=== PATIENT | female | born 1990 | race Caucasian/White ===

== ENCOUNTER 2020-11-01 23:04 | Emergency (ER) | payer OTHER, MEDICAID, SELFPAY ==
[2020-11-01 23:12] VITALS: BP 115/71; PULSE 103; RESP 17; TEMP 36.7; O2SAT 100; BMI 26.6
--- NOTE | 2020-11-02 00:14 | ED_ITS ---
HPI - General Adult General Chief complaint: Urogenital-Female Stated complaint: thinks bladder infection Time Seen by Provider: 11/01/20 23:52 Source: patient Mode of arrival: Ambulatory Limitations: no limitations History of Present Illness HPI narrative: Patient is a 30-year-old female here for evaluation of approximately 24 hours of urinary frequency and urgency and burning. She states she feels like that she has a urinary tract infection. No vomiting. No back pain. No fevers. No vaginal bleeding. No change in bowel habits. Has not tried anything for her symptoms prior to arrival Related Data Previous Rx's Medication Instructions Recorded albuterol sulfate [Proventil HFA] 1 puff INH PRN PRN #8.5 gm 09/03/16 epinephrine [EpiPen 2-Randall] 0.3 mg IM PRN PRN #1 ea 02/22/17 phenazopyridine [Pyridium] 100 mg PO TID PRN #6 tab 11/02/20 Allergies Allergy/AdvReac Type Severity Reaction Status Date / Time FAMILIAL ALLERGY TO SULFA Allergy Unknown Uncoded 02/12/18 12:22 Review of Systems Constitutional Constitutional: Denies fever(s) Genitourinary Genitourinary: Reports dysuria, Reports urinary frequency and Reports urinary urgency Genitourinary: Reports urinary frequency, Reports dysuria, Reports urinary urgency and Denies vaginal discharge Musculoskeletal Musculoskeletal: Denies back pain Integumentary/Breasts Skin/Breast: Denies rash Hematologic/Lymphatic Hematologic/Lymphatic: Denies easy bleeding and Denies easy bruising Patient History Medical History Patient denies medical problems Social History Smoking Status: Current every day smoker Smoking Status: Current every day smoker Substance Use Type: heroin and methamphetamine Exam Initial Vital Signs Initial Vital Signs: Vital Signs Temperature 98.0 F 11/01/20 23:12 Pulse Rate 103 H 11/01/20 23:12 Respiratory Rate 17 11/01/20 23:12 Blood Pressure 115/71 11/01/20 23:12 Pulse Oximetry 100 11/01/20 23:12 Const General: cooperative and comfortable Resp Effort & Inspection: normal respiratory effort Cardio Rate: tachycardic Back/Spine/Pelvis Back: No CVA tenderness Skin Lesions: no lesions Rashes: no rashes Neuro General: patient alert, patient awake and patient oriented x3 Cognition: normal cognition Speech: speech normal Extrem General: normal to inspection Psych Appearance: grossly normal and well kempt Course Orders Ordered: Discontinued Medications Phenazopyridine HCl (Phenazopyridine 100 Mg Tablet) 100 mg PO NOW ONE Stop: 11/02/20 00:15 Last Admin: 11/02/20 00:18 Dose: 100 mg Documented by: ODALYS Vital Signs Vital signs: Vital Signs - 8 hr 11/01/20 23:12 11/02/20 00:21 Temperature 98.0 F Pulse Rate 103 H 93 H Respiratory Rate 17 14 Blood Pressure 115/71 Pulse Oximetry 100 98 Medical Decision Making Lab Data Lab results reviewed: Yes I reviewed the patient's lab results. Labs: Point of Care Testing Test Results Negative Urine Dip Bedside Urine Glucose Negative Bedside Urine Bilirubin - Negative Bedside Urine Ketone - Negative Urine Specific [place] 1.030 Bedside Urine Occult Blood - Negative Bedside Urine pH 6.0 Bedside Urine Protein - Negative Bedside Urine Urobilinogen - Negative Bedside Urine Nitrite - Negative Bedside Urine Leukocytes - Negative Esterase Point of care testing: Point of Care Testing Test Results Negative Urine Dip Bedside Urine Glucose Negative Bedside Urine Bilirubin - Negative Bedside Urine Ketone - Negative Urine Specific [place] 1.030 Bedside Urine Occult Blood - Negative Bedside Urine pH 6.0 Bedside Urine Protein - Negative Bedside Urine Urobilinogen - Negative Bedside Urine Nitrite - Negative Bedside Urine Leukocytes - Negative Esterase MDM Narrative Medical decision making narrative: Her urinalysis today is not consistent with a urinary tract infection. Her test is negative. Patient states she has no concerns about any sexually transmitted diseases. She does seem to be having more of urinary urgency and frequency and dribbling which be more consistent with bladder spasms rather than dysuria. There is no indication for antibiotics currently. Plan will be is to treat her with peridium to see if this does not help with some of her dysuria symptoms. She was given instructions at of her symptoms do not improve or she develops fevers that she needs to contact her primary provider to have her urine checked 1 further time. Patient expressed understanding and agreement. Discharge Plan Departure Patient Disposition: Home Clinical Impression: Dysuria Instructions: DI for Dysuria -- Adult Activity Restrictions/Additional Instructions: Recommend that you increase your fluid intake. Take the peridium as directed. If your symptoms are not improving collect a sample like we discussed. Ideally this would be the 1st urination of the morning. Contact your primary provider. Return to the emergency department for any worsening symptoms Prescriptions: New phenazopyridine [Pyridium] 100 mg tablet 100 mg PO TID PRN (Reason: pain) Qty: 6 RF: 0 No Action albuterol sulfate [Proventil HFA] 90 MCG/PUFF HFA aerosol inhaler 1 puff INH PRN PRNQty: 8.5 RF: 4 epinephrine [EpiPen 2-Randall] 0.3 MG/0.3 ML auto-injector 0.3 mg IM PRN PRNQty: 1 RF: 0
--- NOTE | 2020-11-02 00:14 | ED.GENADULT ---
HPI - General Adult General Chief complaint: Urogenital-Female Stated complaint: thinks bladder infection Time Seen by Provider: 11/01/20 23:52 Source: family Mode of arrival: Ambulatory Limitations: no limitations Related Data Previous Rx's Medication Instructions Recorded albuterol sulfate [Proventil HFA] 1 puff INH PRN PRN #8.5 gm 09/03/16 epinephrine [EpiPen 2-Randall] 0.3 mg IM PRN PRN #1 ea 02/22/17 Allergies Allergy/AdvReac Type Severity Reaction Status Date / Time FAMILIAL ALLERGY TO SULFA Allergy Unknown Uncoded 02/12/18 12:22 Patient History Social History Smoking Status: Current every day smoker Smoking Status: Current every day smoker Substance Use Type: heroin and methamphetamine Exam Initial Vital Signs Initial Vital Signs: Vital Signs Temperature 98.0 F 11/01/20 23:12 Pulse Rate 103 H 11/01/20 23:12 Respiratory Rate 17 11/01/20 23:12 Blood Pressure 115/71 11/01/20 23:12 Pulse Oximetry 100 11/01/20 23:12 Course Vital Signs Vital signs: Vital Signs - 8 hr 11/01/20 23:12 Temperature 98.0 F Pulse Rate 103 H Respiratory Rate 17 Blood Pressure 115/71 Pulse Oximetry 100 Medical Decision Making Lab Data Labs: Point of Care Testing Test Results Negative Urine Dip Bedside Urine Glucose Negative Bedside Urine Bilirubin - Negative Bedside Urine Ketone - Negative Urine Specific [place] 1.030 Bedside Urine Occult Blood - Negative Bedside Urine pH 6.0 Bedside Urine Protein - Negative Bedside Urine Urobilinogen - Negative Bedside Urine Nitrite - Negative Bedside Urine Leukocytes - Negative Esterase Point of care testing: Point of Care Testing Test Results Negative Urine Dip Bedside Urine Glucose Negative Bedside Urine Bilirubin - Negative Bedside Urine Ketone - Negative Urine Specific [place] 1.030 Bedside Urine Occult Blood - Negative Bedside Urine pH 6.0 Bedside Urine Protein - Negative Bedside Urine Urobilinogen - Negative Bedside Urine Nitrite - Negative Bedside Urine Leukocytes - Negative Esterase Discharge Plan Departure Prescriptions: No Action albuterol sulfate [Proventil HFA] 90 MCG/PUFF HFA aerosol inhaler 1 puff INH PRN PRNQty: 8.5 RF: 4 epinephrine [EpiPen 2-Randall] 0.3 MG/0.3 ML auto-injector 0.3 mg IM PRN PRNQty: 1 RF: 0
[2020-11-02] MEDS: PHENAZOPYRIDINE 100 MG TABLET PO (00:18)
[2020-11-02 00:21] VITALS: PULSE 93; RESP 14; O2SAT 98
== END 2020-11-02 00:22 | disposition home or self-care (01) ==
PROVIDERS: Emergency Provider Emergency Medicine
DX: R30.0 Dysuria (principal); R35.0 Frequency of micturition; R00.0 Tachycardia, unspecified
CPT/HCPCS: 81003; 81025; 99281; 99283